=== PATIENT | male | born 1985 | race Caucasian/White ===

== ENCOUNTER 2024-04-15 06:27 | Observation (INO) | payer BC ==
[2024-04-13 09:25] VITALS: BMI 33.2
[2024-04-15] MEDS ORDERED: Lidocaine 1% (PF) 30 ML VIAL ONE (06:38)
[2024-04-15] MEDS ORDERED: EPINEPHrine 1 MG/ML VIAL ONE (06:38)
[2024-04-15] MEDS ORDERED: fentaNYL PF 100 MCG/2 ML SYRINGE ONE ×3 (06:53→11:29)
[2024-04-15] MEDS ORDERED: PROPOFOL 20 ML ONE ×2 (06:53→08:28)
[2024-04-15] MEDS ORDERED: Dexamethasone 4 mg/ml Vial ONE (06:54)
[2024-04-15] MEDS ORDERED: Ondansetron PF 4 MG/2 ML Vial ONE (06:54)
[2024-04-15] MEDS ORDERED: Lidocaine 1% PF 5 ML VIAL ONE (06:54)
[2024-04-15] MEDS ORDERED: SUCCINYLCHOLINE/SOD CL,ISO/PF 200 MG/10 ML SYRINGE FS ONE (06:54)
[2024-04-15] MEDS ORDERED: Midazolam HCl 2 mg/2 ml Vial ONE (06:54)
[2024-04-15] MEDS ORDERED: Dexamethasone 20 MG/5 ML VIAL ONE (08:44)
[2024-04-15] MEDS ORDERED: ePHEDrine Sulfate 50 MG/10 ML VIAL ONE (08:44)
[2024-04-15] MEDS ORDERED: Rocuronium Bromide 10 MG/ML (10ML VIAL) ONE (08:45)
[2024-04-15] MEDS ORDERED: SUGAMMADEX SODIUM 200 MG/2 ML VIAL ONE (08:48)
[2024-04-15] MEDS ORDERED: methylPREDNISolone Acetate 40 mg/ml Vial ONE (08:50)
[2024-04-15] MEDS ORDERED: HYDROmorphone 2 MG/ML VIAL ONE (08:50)
[2024-04-15] MEDS ORDERED: CEFAZOLIN 1 GM VIAL ONE (08:55)
[2024-04-15] MEDS ORDERED: PHENYLEPHRINE-NS 100 MCG/ML 10 ML SYRINGE ONE (09:08)
[2024-04-15] MEDS ORDERED: Labetalol HCl 100 MG/20 ML VIAL ONE (09:59)
[2024-04-15] MEDS ORDERED: Non-Formulary Medication 1 EACH PO PRN (10:56)
[2024-04-15] MEDS ORDERED: Promethazine HCl 25 MG/ML VIAL IM PRN (11:00)
[2024-04-15] MEDS ORDERED: HYDROmorphone 2 MG/ML VIAL SLOW IVP PRN (11:00)
[2024-04-15] MEDS ORDERED: Ondansetron HCl/PF 4 MG/2 ML Vial IVP PRN (11:00)
[2024-04-15] MEDS ORDERED: HYDROmorphone 0.5 MG/0.5 ML SYRINGE ONE (11:29)
[2024-04-15] MEDS ORDERED: fentaNYL 50 mcg/mL 1 mL Vial ONE (12:05)
[2024-04-15] MEDS: Morphine 2 MG/ML VIAL SLOW IVP PRN (13:26)
[2024-04-15] MEDS: Hydrocodone-Acetamin 15 ML UDCUP PO PRN (13:27)
[2024-04-15] MEDS: Calcium Carbonate 500 MG TAB PO SCH (14:15)
[2024-04-15 14:30] LABS: Calcium 9.2 mg/dL (7.8-10.44)
[2024-04-15] MEDS: Sodium Chloride 0.45% 1,000 ML IV SCH (15:54)
[2024-04-16 04:55] LABS: Calcium 8.7 mg/dL (7.8-10.44)
[2024-04-16] MEDS: Calcitriol 0.25 MCG CAP PO SCH (08:49)
[2024-04-16 11:52] VITALS: BP 131/72; TEMP 97.8
== END 2024-04-16 13:50 | disposition home or self-care (01) ==
LOC: SDC 06:27 → SURG B 10:35
PROVIDERS: ADMIT Otolaryngology Plastic Surgery within the Head & Neck; ATTEND Otolaryngology Plastic Surgery within the Head & Neck
PROC: 0GT Endocrine System, Resection (ICD-10-PCS; principal; 2024-04-16)
DX: C73 Malignant neoplasm of thyroid gland (principal); E04.1 Nontoxic single thyroid nodule; J34.2 Deviated nasal septum; J34.3 Hypertrophy of nasal turbinates; F41.9 Anxiety disorder, unspecified; Z90.89 Acquired absence of other organs; Z79.899 Other long term (current) drug therapy
CPT/HCPCS: 36415; 82310; 83970; 88307; C1889; J0171; J0690; J1030; J1100; J1170; J2001; J2250; J2272; J2405; J2704; J3010